=== PATIENT | male | born 1960 | race Caucasian/White ===

== ENCOUNTER 2016-11-15 22:59 | Emergency (ER) | payer MEDICARE ==
--- NOTE | 2016-11-15 23:25 | ED.PDOC ---
History of Present Illness - General Chief Complaint: Unresponsive Stated Complaint: unresponsive Time Seen by Provider: 11/15/16 23:04 Source: RN notes reviewed, Vital Signs reviewed, family - , EMS Exam Limitations: clinical condition - History of Present Illness Initial Comments: Patient comes in via EMS intubated and unresponsive. Per they were eating dinner and he got up to take his evening medications. Shortly after he started profusely sweating and thought something was wrong with his blood sugar. reports he just kept chewing and chewing, would not swallow or spit out the food. She helped him to the bedroom - required significant assistance. She put him on the bed and went to call 911. When she returned he was laying on the bed and was unresponsive. Other than the sweating he did not complain of anything else. Per EMS, when they arrived the patient was unresponsive, breathing 3-4X/minute with O2 saturation of 50% so he was given Valium, Sucs and Vec and was intubated. During intubation they removed what appears to be a chewed up Fentanyl patch from his throat. Timing/Duration: momentarily Severity: severe Improving Factors: nothing Worsening Factors: nothing Allergies/Adverse Reactions: Allergies NO KNOWN ALLERGY Allergy (Unverified 11/22/12 18:04) Home Medications: Ambulatory Orders Alprazolam [Xanax] 2 mg PO Q8H #0 11/23/12 Aspirin [Morgan Chewable Low Dose] 81 mg PO DAILY #0 11/23/12 Atorvastatin Calcium [Lipitor] 40 mg PO DAILY #0 11/23/12 Clopidogrel Bisulfate [Plavix] 75 mg PO DAILY #0 11/23/12 Lisinopril 10 mg PO DAILY #0 11/23/12 Metoprolol Succinate [Metoprolol Succinate ER] 50 mg PO DAILY #0 11/23/12 Multiple Vitamins W/ Minerals 1 tab PO DAILY #0 11/23/12 Oxcarbazepine 900 mg PO DAILY #0 11/23/12 Review of Systems - Review of Systems Unable to Obtain Due To: intubated Past Medical History (General) - Patient Medical History Hx Seizures: No Hx Stroke: No Hx Dementia: No Hx Asthma: No Hx of COPD: No Hx Cardiac Disorders: Yes Hx Congestive Heart Failure: No - Hx:CABG Hx Pacemaker: No Hx Hypertension: No Hx Thyroid Disease: No Hx Diabetes: No Hx Gastroesophageal Reflux: No Hx Renal Disease: No Hx of HIV: No Hx MRSA: No Surgical History: noncontributory - Vaccination History Hx Tetanus, Diphtheria Vaccination: - unknown Hx Influenza Vaccination: - unknown Hx Pneumococcal Vaccination: - unknown Immunizations Up to Date: - unknown - Social History Hx Alcohol Use: Yes Hx Substance Use: Yes Hx Physical Abuse: No Hx Emotional Abuse: No Family Medical History - Family History Mother Family History: Unknown Physical Exam - Physical Exam General Appearance: Other - Unresponsive, intubated Eye Exam: bilateral abnormal pupil - pinpoint and fixed Respiratory: lungs clear, normal breath sounds, other - Intubated Cardiovascular/Chest: regular rate, rhythm, no gallop, no murmur Peripheral Pulses: radial,right: 2+, radial,left: 2+, dorsalis pedis,right: 2+, dorsalis pedis,left: 2+ Gastrointestinal/Abdominal: normal bowel sounds, soft, no organomegaly, no pulsatile mass Neurologic: other - Intubated, unresponsive Skin Exam: normal color, warm/dry Comments: Vital Signs 11/15/16 23:00 Temperature 95.7 F L Pulse Rate 77 Pulse Rate [ 77 monitor] Respiratory 20 Rate Blood Pressure 100/63 [Left Arm] O2 Sat by Pulse 99 Oximetry Progress - Progress Progress: 11/16/16 00:57 Probable Fentanyl overdose. Discussed with and children. Will transfer to [facility] - Results/Orders Results/Orders: Laboratory Tests 11/15/16 11/15/16 11/15/16 23:05 23:05 23:05 WBC 9.5 RBC 4.23 L Hgb 13.9 L Hct 41.5 L MCV 97.9 H MCH 32.8 H MCHC 33.6 RDW 12.9 Plt Count 225 MPV 7.6 Absolute Neuts (auto) 4.50 Absolute Lymphs (auto) 3.80 H Absolute Monos (auto) 0.90 H Absolute Eos (auto) 0.20 Absolute Basos (auto) 0.10 Neutrophils % 47.8 Lymphocytes % 40.6 Monocytes % 9.0 Eosinophils % 2.0 Basophils % 0.6 Sodium 136 Potassium 3.8 Chloride 100 L Carbon Dioxide 25 Anion Gap 14.8 BUN 11 Creatinine 1.08 BUN/Creatinine Ratio 10.2 Random Glucose 164 H Serum Osmolality 275.0 Calcium 8.6 Total Bilirubin 0.5 AST 22 ALT 34 Alkaline Phosphatase 62 Creatine Kinase 89 CK-MB (CK-2) 1.9 CK-MB (CK-2) % Not Reportable Troponin I < 0.02 Serum Total Protein 7.3 Albumin 3.8 Globulin 3.5 Albumin/Globulin Ratio 1.1 Salicylates Urine Opiates Screen Acetaminophen Urine Barbiturates Ur Phencyclidine Scrn U Amphetamin/Meth Scrn U Benzodiazepines Scrn U Cocaine Metab Screen U Cannabinoids Screen Ethyl Alcohol 6.60 11/15/16 11/16/16 23:56 00:20 WBC RBC Hgb Hct MCV MCH MCHC RDW Plt Count MPV Absolute Neuts (auto) Absolute Lymphs (auto) Absolute Monos (auto) Absolute Eos (auto) Absolute Basos (auto) Neutrophils % Lymphocytes % Monocytes % Eosinophils % Basophils % Sodium Potassium Chloride Carbon Dioxide Anion Gap BUN Creatinine BUN/Creatinine Ratio Random Glucose Serum Osmolality Calcium Total Bilirubin AST ALT Alkaline Phosphatase Creatine Kinase CK-MB (CK-2) CK-MB (CK-2) % Troponin I Serum Total Protein Albumin Globulin Albumin/Globulin Ratio Salicylates < 4.0 Urine Opiates Screen Negative Acetaminophen < 10.0 L Urine Barbiturates Negative Ur Phencyclidine Scrn Negative U Amphetamin/Meth Scrn Negative U Benzodiazepines Scrn Positive H U Cocaine Metab Screen Negative U Cannabinoids Screen Positive H Ethyl Alcohol - EKG/XRAY/CT XRAY: chest - L perihilar and lower lobe infiltrate per Radiologist CT Ordered: Yes - Head: no acute intracranial abnormality perr Radiologist Departure - Departure Clinical Impression: Accidental fentanyl overdose Qualifiers: Encounter type: initial encounter Qualified Code(s): T40.4X1A - Poisoning by other synthetic narcotics, accidental (unintentional), initial encounter Time of Disposition: 00:58 Disposition: Transfer to Hospital Condition: Serious Departure Forms: ED Discharge - Pt. Copy, Patient Portal Self Enrollment Referrals: PEDRO PABLO WEISS [Primary Care Provider] - 1-2 Weeks Home Medications: Ambulatory Orders Alprazolam [Xanax] 2 mg PO Q8H #0 11/23/12 Aspirin [Morgan Chewable Low Dose] 81 mg PO DAILY #0 11/23/12 Atorvastatin Calcium [Lipitor] 40 mg PO DAILY #0 11/23/12 Clopidogrel Bisulfate [Plavix] 75 mg PO DAILY #0 11/23/12 Lisinopril 10 mg PO DAILY #0 11/23/12 Metoprolol Succinate [Metoprolol Succinate ER] 50 mg PO DAILY #0 11/23/12 Multiple Vitamins W/ Minerals 1 tab PO DAILY #0 11/23/12 Oxcarbazepine 900 mg PO DAILY #0 11/23/12 Transfer to Outside Facility - Transfer Information Accepting Provider:: Dr.Evan Navarro Accepting Facility: [facility] [place] Reason for Transfer: ICU
--- NOTE | 2016-11-15 23:31 | RAD ---
EXAM DESCRIPTION: Chest,1 View CLINICAL HISTORY: 56 years Male Unresponsive/Intubated COMPARISON: 11/22/2012 FINDINGS: Endotracheal tube is above the level the crow. Median sternotomy wires are present. The cardiac and mediastinal contour are stable. There is patchy infiltrate in the left perihilar region and consolidation in the retrocardiac region concerning for pneumonia. Right lung appears clear IMPRESSION: Left perihilar and lower lobe infiltrate concerning for pneumonia ET tube above the crow Electronically signed by: Sonia Alba 11/15/2016 11:29 PM CDT
--- NOTE | 2016-11-15 23:49 | CT ---
PROCEDURE: Head CLINICAL HISTORY: 56 years Male Unresponsive COMPARISON: None. TECHNIQUE: Contiguous axial images obtained through the brain without IV contrast. This exam was performed according to our department optimization program which includes automated exposure control, adjustment of the mA and/or kv according to patient size and/or use of iterative reconstruction technique. FINDINGS: The ventricles and sulci are prominent consistent with atrophic changes. No mass lesions. No acute hemorrhage. Atherosclerotic calcifications. Minimal mucosal thickening in the paranasal sinuses. ET tube is in place. No depressed calvarial fractures. IMPRESSION: No acute intracranial abnormality is identified. Electronically signed by: Sonia Alba 11/15/2016 11:47 PM CDT
[2016-11-16] MEDS ORDERED: SUCCINYLCHOLINE CHLORIDE 200 MG/10 ML VIAL IV ONE (00:44)
[2016-11-16 01:03] VITALS: TEMP 96.8
[2016-11-16 02:14] VITALS: BP 137/98; O2SAT 96
== END 2016-11-16 02:05 | disposition short-term general hospital (02) ==
LOC: ER 22:59
DX: T40.4X1A Poisoning by other synthetic narcotics, accidental (unintentional), initial encounter (principal); Z95.1 Presence of aortocoronary bypass graft; Z79.82 Long term (current) use of aspirin; Z79.899 Other long term (current) drug therapy; Y92.009 Unspecified place in unspecified non-institutional (private) residence as the place of occurrence of the external cause
CPT/HCPCS: 36415; 70450; 71010; 80053; 80307; 80320; 80329; 82550; 82553; 84484; 85025; 93005; J0330

== ENCOUNTER → 2017-11-05 | Outpatient (CLI) | payer MEDICARE ==
--- NOTE | 2017-11-05 13:50 | MRI ---
EXAM DESCRIPTION: Upper Extremity,Right w/o Cont: MRI. CLINICAL HISTORY: RT SHOULDER PAIN COMPARISON: None. TECHNIQUE: Multiplanar, high-field MRI, multiple sequences, without contrast: Right shoulder. FINDINGS: Right T2-weighted and proton-density weighted signal in the mid-posterior supraspinatus tendon at the insertion site which is longitudinal and extends almost 1 cm proximally, almost forming a superior to inferior fissure in the tendon. Seen on PD coronal sequence, image 8. Intermediate signal in the anterior aspect of the tendon. Intermediate signal in the infraspinous tendon. Tiny amount of edema in the subacromial-subdeltoid bursa. Normal signal in the remaining tendons of the rotator cuff. No significant muscle atrophy. Effusion in the right AC joint space and irregularities of the subchondral acromion and clavicle at the facets. Inferior distal clavicle spur impressing on the distal muscle fibers of the superior supraspinatus. Cortical ligaments are intact with minimal flattening of the lateral coracoacromial arch. Type II lateral acromion with minimal downsloping laterally. Subcoracoid bursa is negative. Small cortical defects on the posterior and posterior lateral aspect of the humeral head. No glenohumeral joint effusion. Linear bright PD defect at the superior junction of the bicipital labral complex and labrum is seen on the axial view, image 14. PD coronal, image 8. Degenerative signal in the posterior aspect of the inferior labrum. No significant glenohumeral osteochondral lesions or joint effusion. Long head biceps tendon within the bicipital groove. IMPRESSION: 1. Approximately 1 cm longitudinal tear in the distal mid posterior fibers of the supraspinatus tendon at the insertion site. Minimal edema in the subacromion/subdeltoid bursa. Degeneration in the anterior supraspinatus tendon fibers and in the infraspinatus tendon at the insertion. 2. Moderate arthrosis of the AC joint. Minimal impingement of the superior fibers of the underlying supraspinatus tendon, and narrowing of the supraspinatus tendon outlet. 3. Partial tear of the superior aspect of the bicipital labral junction. Labral degeneration. Electronically signed by: Asher Cowart MD 11/05/2017 1:48 PM CDT
== END ==
LOC: MRI 08:04
PROVIDERS: ATTEND Emergency Medicine
DX: M75.101 Unspecified rotator cuff tear or rupture of right shoulder, not specified as traumatic (principal); M19.011 Primary osteoarthritis, right shoulder

== ENCOUNTER → 2020-03-22 | Outpatient (CLI) | payer MEDICARE ==
--- NOTE | 2020-03-23 11:18 | RAD ---
EXAM: Shoulder,Right 2 or More Views INDICATION: 59 years Male, RIGHT SHOULDER PAIN COMPARISON: None available FINDINGS: 4 views of the right shoulder were performed. No fracture or dislocation. A probable bone island is noted at the humeral head. Mild to moderate degenerative change at the acromioclavicular joint and glenohumeral joint. Unremarkable appearance of the visualized soft tissues. Sternotomy wires are noted. IMPRESSION: Degenerative changes in the right shoulder without fracture or dislocation. Electronically signed by: Silvana Novak MD 03/23/2020 11:16 AM [facility]
== END ==
LOC: RAD 09:00
PROVIDERS: ATTEND Orthopaedic Surgery
DX: M19.011 Primary osteoarthritis, right shoulder (principal)